=== PATIENT | female | born 1985 | race Caucasian/White ===

== ENCOUNTER 2019-12-08 05:04 | Inpatient (IN) | payer SELFPAY ==
[2019-12-08] VITALS (18 sets, daily range): BP systolic 104–147; BP diastolic 67–93; PULSE 72–96; TEMP 98–98.8
[~2019-12-08] VITALS: Ht 154.9 cm; Wt 63.5 kg
--- NOTE | 2019-12-08 05:20 | NUR ---
0520 G2L1 40 WEEK GEST TO LR5 IN [facility]. SPEAKS VERY LITTLE UPPER SORBIAN. EFM ON. CONTRACTIONS EVERY FIVE MINUTES SINCE MIDNIGHT. SVE /-2. BOW INTACT. ADM ASSESSMENT COMPLETED. 0600 DR ANGEL NOTIFIED AND ORDER RECEIVED TO ADMIT PT.
[2019-12-08] MEDS ORDERED: PRENATAL TABLET PO (05:26)
[2019-12-08] MEDS ORDERED: ZILRETTA32 MG TOP (05:27)
[2019-12-08 08:19] LABS: BASO % 0.3 % (0.0-2.0); EOS # 0.1 (0.0-0.7); EOS % 0.7 % (0-4.0); HEMATOCRIT 42.3 % (37.0-47.0); HEMOGLOBIN 14.5 g/dl (12.5-16.0); LYMPH # 1.9 (1.2-3.4); LYMPH % 16.4 % (20.0-51.0); MEAN CELL VOLUME 89 fl (80.0-100.0); MEAN CORPUSCULAR HEMOGLOBIN 31 pg (27.0-31.0); MEAN CORPUSCULAR HGB CONC 34 g/dl (33.0-37.0); MEAN PLATELET VOLUME 11.9 fl (7.4-10.4); MONO # 0.7 (0.1-0.6); MONO % 6.3 % (1.7-9.3); PLATELET COUNT 204 K/mm3 (130-400); RED BLOOD COUNT 4.74 M/mm3 (4.10-5.30); REDCELL DISTRIBUTION WIDTH-CV 13.9 % (11.5-14.5)
--- NOTE | 2019-12-08 08:24 | NUR ---
Dr. Hawkins to pt bedside at 0817. AROM at this time, clear fluid. SVE per provider . Dr. Hawkins remains on unit.
--- NOTE | 2019-12-08 10:02 | NUR ---
0837 - SVE 8-9/100/0 0850 - Pt feeling urge to push. SVE AL/100/0. Dr. Hawkins called to bedside. Luís Boone, RN of nursery notified. 0856 - AL remains, pt repositioned to RL with left leg up in stirrup. 0910 - Pt complete per Dr. Hawkins. Pt repositioned to supine with feet in stirrups. 0912 - Pt pushing with contractions with physician. FHT difficult to trace with pushing. 0923 - Spontaneous delivery of viable male infant by Dr. Hawkins. placed on mother's abdomen, care assumed by Luís Boone RN of nursery. True knot in cord, nuchal x2. 0928 - Spontaneous delivery of placenta by Dr. Hawkins. Pt intact per physician. Pitocin started at 333mu/ml per protocol. Pericare provided, pad and ice pack placed. Pt repositioned for comfort.
--- NOTE | 2019-12-08 11:30 | NUR ---
Patient sitting on edge of bed and dangles feet. Patient ambulates to bathroom and voids. Pericare done and new gown/underwear/pad on. Patient to new room via wheelchair and oriented to and discussed plan of care. Questions answered.
[2019-12-09 04:00] VITALS: BP 99/59; PULSE 81; TEMP 98.2
[2019-12-09 09:00] VITALS: BP 116/70; PULSE 87; TEMP 98.1
--- NOTE | 2019-12-09 12:49 | NUR ---
Initial visit attempt; Physician with family, [employer] Vice President left card of congratulations for the of their son. [employer] Vice President thanked family for choosing [facility].
[2019-12-09] MEDS ORDERED: IBU600 MG PO (13:22)
--- NOTE | 2019-12-09 14:30 | NUR ---
Patient given discharge information and translated per [employer] translate and daughter/spouse at bedside to assist with tranlating. Patient understands discharge instructions and signs papers. Bands checked and off baby and infant into carseat and straps checked. Marry with [facility] services notified that information not completety filled out. Marry states they will call patients with information. Patient and spouse notified and understand plan. 1500: Patient/ off unit with this RN.
== END 2019-12-09 15:00 | disposition home or self-care (01) | DRG 807 ==
LOC: LDRO 05:04 → LDR 05:45 → OB 12:05
PROVIDERS: ADMIT Obstetrics & Gynecology
PROC: 10E0XZZ Delivery of Products of Conception, External Approach (ICD-10-PCS; principal; 2019-12-08)
PROC: 10907ZC Drainage of Amniotic Fluid, Therapeutic from Products of Conception, Via Natural or Artificial Opening (ICD-10-PCS; 2019-12-08)
DX: O77.0 Labor and delivery complicated by meconium in amniotic fluid (principal); Z37.0 Single live birth; Z3A.40 40 weeks gestation of pregnancy
CPT/HCPCS: J2590; J7120

== ENCOUNTER → 2020-03-14 | Outpatient (CLI) | payer MEDICAID ==
[~2020-03-14] MED LIST: IBU600 MG PO; PRENATAL TABLET PO; ZILRETTA32 MG TOP
== END ==
LOC: COL.RAD 14:15
DX: R10.2 Pelvic and perineal pain (principal)

== ENCOUNTER → 2022-12-27 | Outpatient (CLI) | payer SELFPAY | LOC: COL.RAD 15:01 | DX: R76.11 Nonspecific reaction to tuberculin skin test without active tuberculosis (principal) ==